=== PATIENT | female | born 1955 | race Hispanic/Latino ===

== ENCOUNTER → 2019-07-23 | Outpatient (CLI) | payer OTHER ==
[~2019-07-23] MED LIST: IOHEXOL-350 75 ML VIAL IV ONE
== END | disposition home or self-care (01) ==
LOC: RAH 08:55
PROVIDERS: ATTEND Internal Medicine
DX: K80.20 Calculus of gallbladder without cholecystitis without obstruction (principal); K57.30 Diverticulosis of large intestine without perforation or abscess without bleeding
CPT/HCPCS: 74178; Q9967

== ENCOUNTER → 2020-04-08 | Outpatient (CLI) | payer OTHER | END | disposition home or self-care (01) | LOC: RAH 13:06 | PROVIDERS: ATTEND Internal Medicine | DX: N60.02 Solitary cyst of left breast (principal); Q83.1 Accessory breast ==

== ENCOUNTER → 2020-11-05 | Outpatient (CLI) | payer OTHER | END | disposition home or self-care (01) | LOC: RAH 15:01 | PROVIDERS: ATTEND Internal Medicine | DX: N60.02 Solitary cyst of left breast (principal); N60.01 Solitary cyst of right breast; N63.21 Unspecified lump in the left breast, upper outer quadrant | CPT/HCPCS: 77066 ==

== ENCOUNTER 2021-01-11 20:03 | Emergency (ER) | payer OTHER ==
[2021-01-11] MEDS ORDERED: HYDROCODONE/ACETAMINOPHEN 10/325 MG TAB ONE (20:33)
[2021-01-11] MEDS ORDERED: ACETAMINOPHEN EXTRA STRENGTH 500 MG TABLET ONE (20:38)
[2021-01-11] MEDS ORDERED: SODIUM CHLORIDE 0.9% 50 ML IV ONE (21:48)
== END 2021-01-11 22:22 | disposition home or self-care (01) ==
LOC: EDH 20:03
DX: S01.81XA Laceration without foreign body of other part of head, initial encounter (principal); S80.02XA Contusion of left knee, initial encounter; S80.01XA Contusion of right knee, initial encounter; S90.31XA Contusion of right foot, initial encounter; Z88.8 Allergy status to other drugs, medicaments and biological substances; Z88.5 Allergy status to narcotic agent; Z88.9 Allergy status to unspecified drugs, medicaments and biological substances; W01.0XXA Fall on same level from slipping, tripping and stumbling without subsequent striking against object, initial encounter; Y93.89 Activity, other specified; Y92.89 Other specified places as the place of occurrence of the external cause; Y99.8 Other external cause status
CPT/HCPCS: 12002; 12013; 70450; 70486; 71045; 72125; 73562; 73630

== ENCOUNTER 2021-02-12 11:37 | Emergency (ER) | payer OTHER ==
[2021-02-12 12:17] LABS: BASOPHILS % (AUTO) 0.4 % (0.0-5.0); EOSINOPHILS % (AUTO) 0.6 % (0.0-8.0); HEMATOCRIT 46.1 % (36-48); LYMPHOCYTES % (AUTO) 38.8 % (21.0-51.0); MEAN CORPUSCULAR HEMOGLOBIN 30.7 pg (27.0-33.0); MEAN CORPUSCULAR HGB CONC 33.2 g/dL (32.0-36.0); MEAN CORPUSCULAR VOLUME 92.6 fL (79-99); MONOCYTES % (AUTO) 5.9 % (3.0-13.0); NEUTROPHILS % (AUTO) 53.9 % (40.0-77.0); PLATELET COUNT (AUTO) 246 K/uL (130-400); RED BLOOD CELL COUNT(AUTO) 4.98 MIL/uL (4.00-5.50); RED CELL DISTRIBUTION WIDTH 12.8 % (11.0-15.5); WHITE BLOOD COUNT (AUTO) 7.9 K/uL (4.8-10.8)
[2021-02-12 12:25] LABS: CREATININE 0.7 mg/dL (0.5-1.5); POTASSIUM 3.6 mmol/L (3.5-5.1)
[2021-02-12 12:30] LABS: BILIRUBIN,TOTAL 0.3 mg/dL (0.2-1.0); CRP QUANTITATIVE 1.5 mg/L (0.00-9.0); TOTAL PROTEIN, SERUM 7.6 g/dL (6.0-8.3)
[2021-02-12 13:34] LABS: ERYTHROCYTE SEDIMENTATION RATE 13 MM/HR (0-30)
[2021-02-12] MEDS ORDERED: IOHEXOL-350 50ML VIAL IV ONE (14:15)
== END 2021-02-12 16:37 | disposition home or self-care (01) ==
LOC: EDH 11:37
DX: R20.2 Paresthesia of skin (principal); Z88.6 Allergy status to analgesic agent; Z91.048 Other nonmedicinal substance allergy status; Z91.011 Allergy to milk products; Z88.8 Allergy status to other drugs, medicaments and biological substances
CPT/HCPCS: 36415; 70487; 80053; 84145; 85025; 85651; 86140; 99285; Q9967

== ENCOUNTER → 2023-01-26 | Outpatient (CLI) | payer OTHER | END | disposition home or self-care (01) | LOC: RAH 14:11 | PROVIDERS: ATTEND Internal Medicine | DX: N60.01 Solitary cyst of right breast (principal); N60.02 Solitary cyst of left breast | CPT/HCPCS: 77066 ==

== ENCOUNTER → 2024-05-08 | Outpatient (CLI) | payer OTHER | END | disposition home or self-care (01) | LOC: RAH 11:25 | PROVIDERS: ATTEND Internal Medicine | DX: Z12.31 Encounter for screening mammogram for malignant neoplasm of breast (principal); R92.323 Mammographic fibroglandular density, bilateral breasts | CPT/HCPCS: 77067 ==

== ENCOUNTER 2024-08-17 14:16 | Emergency (ER) | payer OTHER ==
[~2024-08-17] VITALS: Ht 152.4 cm; Wt 62.6 kg
[2024-08-17 14:53] VITALS: TEMP 98.5
[2024-08-17] MEDS: ondanSETRON 4MG INJ IVP ONE (15:30)
[2024-08-17 15:33] LABS: BASOPHILS # (AUTO) 0.02 K/uL (0.00-0.20); BASOPHILS % (AUTO) 0.4 % (0.0-5.0); EOSINOPHILS # (AUTO) 0.04 K/uL (0.00-0.70); EOSINOPHILS % (AUTO) 0.7 % (0.0-8.0); HEMATOCRIT 45.2 % (36-48); IMMATURE GRANULOCYTE ABSOLUTE 0.02 K/uL (0-1); LYMPHOCYTES % (AUTO) 35.5 % (21.0-51.0); MEAN CORPUSCULAR HEMOGLOBIN 29.8 pg (27.0-33.0); MEAN CORPUSCULAR VOLUME 90.4 fL (79-99); MONOCYTES # (AUTO) 0.4 K/uL (0.1-1.0); MONOCYTES % (AUTO) 7.7 % (3.0-13.0); NEUTROPHILS # (AUTO) 3.1 K/uL (1.8-7.7); NEUTROPHILS % (AUTO) 55.3 % (40.0-77.0); PLATELET COUNT (AUTO) 242 K/uL (130-400); RED CELL DISTRIBUTION WIDTH 12.4 % (11.0-15.5); WHITE BLOOD COUNT (AUTO) 5.6 K/uL (4.8-10.8)
[2024-08-17 15:49] LABS: INR 1.01 (0.85-1.15); PROTHROMBIN TIME 10.9 SEC (9.6-11.6)
[2024-08-17 15:51] LABS: CREATININE 0.8 mg/dL (0.5-1.0); POTASSIUM 3.3 mmol/L (3.5-5.1)
[2024-08-17 17:26] VITALS: BP 127/60; PULSE 70; RESP 18; O2SAT 97
[2024-08-17] MEDS: morPHINE 2 MG SYG IVP ONE (17:29)
== END 2024-08-17 17:35 | disposition home or self-care (01) ==
LOC: EDH 14:16
DX: R09.A9 Foreign body sensation, other site (principal); Z88.8 Allergy status to other drugs, medicaments and biological substances; Z88.5 Allergy status to narcotic agent; Z98.890 Other specified postprocedural states
CPT/HCPCS: 36415; 70360; 80048; 85025; 85610; 85730; J2270; J2405

== ENCOUNTER 2024-11-02 16:41 | Emergency (ER) | payer OTHER ==
[~2024-11-02] VITALS: Ht 154.9 cm; Wt 59.9 kg
--- NOTE | 2024-11-02 16:56 | ERN ---
ED Note History of Present Illness Stated Complaint: MECHANICAL FALL Chief Complaint: Mechanical Fall Time Seen by MD: 16:52 Dictation: PATIENT IS A 69-YEAR-OLD FEMALE HERE WITH COMPLAINTS OF HAVING RIGHT WRIST, LEFT KNEE AND ANTERIOR CHEST PAIN STATUS POST SAME LEVEL TRIP FALL. SHE STATES HE WAS WALKING HER DOG WHEN SHE TRIPPED AND FELL. NO LOC NO BLOOD THINNERS NO HEAD INJURY NO TRAUMA ALERT CRITERIA AT THIS TIME. PATIENT WAS AMBULATORY TO TRIAGE. ECCHYMOSIS AND ABRASION NOTED TO LEFT ANTERIOR KNEE. Allergies: Coded Allergies: alcohol (Unverified Allergy, Unknown, 02/12/21) amitriptyline (Unverified Allergy, Unknown, 02/12/21) codeine (Unverified Allergy, Unknown, 02/12/21) pantoprazole (Unverified Allergy, Unknown, 02/12/21) Home Meds Active Scripts Ketorolac Tromethamine (Ketorolac Tromethamine) 10 Mg Tablet, 1 TAB PO Q6HPRN PRN for pain for 5 Days, #20 TAB 0 Refills Prov:ARACELI CLARK PROFESSOR OF ENVIRONMENTAL ENGINEERING 11/02/24 Ibuprofen (Ibuprofen) 600 Mg Tablet, 600 MG PO Q6H PRN for PAIN, #30 TAB Prov:ARACELI CLARK PROFESSOR OF ENVIRONMENTAL ENGINEERING 11/02/24 Past Medical History Past Medical History: No Pertinent History Surgical History: Other Surgical History Other: BILAT EAR SX History: Not Applicable RN Note Reviewed/Agreed w/PFSH: Yes Review of System Dictation CONSTITUTIONAL: NEGATIVE EXCEPT FOR HPI HEAD/FACE: NEGATIVE EXCEPT FOR HPI EENT: NEGATIVE EXCEPT FOR HPI RESPIRATORY: NEGATIVE EXCEPT FOR HPI ANTERIOR CHEST PAIN GASTROINTESTINAL/ABDOMINAL: NEGATIVE EXCEPT FOR HPI GENITOURINARY: NEGATIVE EXCEPT FOR HPI MUSCULOSKELETAL: NEGATIVE EXCEPT FOR HPI RIGHT WRIST/LEFT KNEE PAIN INTEGUMENTARY: NEGATIVE EXCEPT FOR HPI NEUROLOGICAL/PSYCH: NEGATIVE EXCEPT FOR HPI HEMATOLOGIC/LYMPHATIC: NEGATIVE EXCEPT FOR HPI ALL SYSTEMS NEGATIVE, EXCEPT NOTED ABOVE. 13 POINT REVIEW OF SYSTEMS ASSESSED AND ALL NEGATIVE EXCEPT FOR ABOVE. Initial Vital Sign VS Vital Signs Date Time Temp Pulse Resp B/P (MAP) Pulse Ox O2 Delivery O2 Flow Rate FiO2 11/02/24 16:48 97.7 58 16 155/85 99 Room Air 0 11/02/24 17:22 21 Physical Exam Dictation VITAL SIGNS REVIEWED GENERAL APPEARANCE: ALERT, ORIENTED X 3, MILD ACUTE DISTRESS, WELL DEVELOPED, NOURISHED. HEAD AND FACE: NON-TRAUMATIC. EYES: PERRL, PINK CONJUNCTIVAS, EYELID NO TRAUMA, ANTERIOR CHAMBER WITH ARCUS SENILIS. EARS: PINNAS INTACT AND NO SIGNS OF TRAUMA OR ERYTHEMA EAR CANALS CLEAR AND NO DISCHARGE TM NO ERYTHEMA NOSE: NO DISCHARGE, NO BLEEDING. OROPHARYNX: MOUTH NORMAL, TONGUE PINK, PHARYNX CLEAR,NO ERYTHEMA, TONSILS NO EXUDATES, NO ABSCESSES NOTED, MUCOUS MEMBRANE MOIST NECK: SUPPLE, NON-TENDER, NO THYROMEGALY, NO MASSES, NO JVD, NO BRUITS BREAST:DEFERRED CHEST: DIFFUSE MILD ANTERIOR TENDERNESS TENDERNESS, NO CREPITUS, NO PARADOXICAL MOVEMENT, NO RETRACTIONS LUNGS:CLEAR, WELL-VENTILATED, SYMMETRIC, NO RALES, NO WHEEZING, NO RHONCHI, NO STRIDOR, GOOD BREATH SOUNDS BILATERALLY HEART: REGULAR RATE, REGULAR RHYTHM, NO MURMUR, NO GALLOPS VASCULAR: NO PERIPHERAL EDEMA, ABDOMEN: SOFT, POSITIVE BOWEL SOUNDS, NONDISTENDED, NO GUARDING, NONTENDER, NO REBOUND, NO MASSES NO HEPATOMEGALY, NO SPLENOMEGALY, NO WHITLOCK'S SIGN, NO HERNIAS. RECTAL: DEFERRED GENITAL: DEFERRED NEUROLOGICAL: NORMAL SPEECH, MOTOR FUNCTION INTACT, SENSORY FUNCTION INTACT MUSCULOSKELETAL: NECK NONTENDER, FULL RANGE OF MOTION, BACK NONTENDER, FULL RANGE OF MOTION, EXTREMITIES: ABRASION WITH ECCHYMOSIS TO LEFT MEDIAL ANTERIOR KNEE, MILD RIGHT WRIST PAIN TENDERNESS WITH ROTATION HOWEVER RANGE OF MOTION IS FULL SKIN: COLOR PINK, DRY, NO TURGOR, NO RASH, NO LACERATIONS, NO ABRASIONS, NO CONTUSIONS. LYMPHATIC: DEFERRED Results (Laboratory/Radiology) Laboratory/Radiology RIGHT WRIST X-RAY NEGATIVE LEFT KNEE X-RAY NEGATIVE CHEST X-RAY NEGATIVE Labs Reviewed?: Yes ED Course ED Course Orders Procedure Category Date Status Time Knee 3vws Lt RAD 11/02/24 Resulted 16:52 Wrist Comp 3+Vws Rt RAD 11/02/24 Resulted 16:52 Chest 1vw RAD 11/02/24 Resulted 16:52 Ketorolac 60mg/2ml PHA 11/02/24 Complete (Toradol 60mg/2ml) 17:00 Tetanus,Diphtheria PHA 11/02/24 Complete Tox [Adult] (Diphther 17:00 Current Medications Medications (Trade) Dose Ordered Sig/Virgen Route PRN Reason Start Time Stop Time Status Last Admin Dose Admin Ketorolac Tromethamine (toRADol 60MG/ 2ML) 60 mg ONCE ONCE IM 11/02/24 17:00 11/02/24 17:01 DC 11/02/24 16:58 Tetanus/ Diphtheria Toxoids Adsorbed (DiphthERIA-teTANUS TOXOID [ADULT]/ DECAVAC) 0.5 ml ONCE ONCE IM 11/02/24 17:00 11/02/24 17:01 DC 11/02/24 16:59 Vital Signs Date Time Temp Pulse Resp B/P (MAP) Pulse Ox O2 Delivery O2 Flow Rate FiO2 11/02/24 18:16 97.2 74 18 127/71 98 Room Air* 0 21 11/02/24 17:22 97.9 78 20 131/78 98 Room Air* 0 21 11/02/24 16:48 97.7 58 16 155/85 99 Room Air 0 1807, X-RAYS NEGATIVE PATIENT DISCHARGED HOME WITH THE TO FOLLOW ACTIVITY TOLERATED AND SEE YOUR DOCTOR EIGHTEEN , PATIENT WAS BEING DISCHARGED HOME AND SAID SHE HAD ALLERGIES TO IBUPROFEN ADVIL I TOLD HER I HAD GIVEN HER KETOROLAC ALMOST AN HOUR AGO AND SHE HAD HAD NO REACTION AT ALL. SHE ASKED ME IF I WOULD POLICE SEND HER SOME KETOROLAC TO HER PHARMACY AND I AGREED. Medical Decision Making MDM MEDICAL DECISION-MAKING BASED ON X-RAYS OF CHEST, LEFT KNEE, RIGHT WRIST. ALL X-RAYS NEGATIVE TETANUS SHOT WAS UPDATED DUE TO ABRASION LEFT KNEE PATIENT DISCHARGED HOME TO FOLLOW UP HER DOCTOR IN 1-2 DAYS ACTIVITY TOLERATED. DX & DISP Disposition: Discharge Departure Impression: Primary Impression: Contusion of chest wall with intact skin Additional Impressions: Contusion of left knee, initial encounter, Abrasion, left knee, initial encounter, Contusion of right wrist, initial encounter, Fall Condition: Stable Scripts Ketorolac Tromethamine (Ketorolac Tromethamine) 10 Mg Tablet 1 TAB PO Q6HPRN PRN for pain for 5 Days, #20 TAB 0 Refills Prov: ARACELI CLARK PROFESSOR OF ENVIRONMENTAL ENGINEERING 11/02/24 Ibuprofen (Ibuprofen) 600 Mg Tablet 600 MG PO Q6H PRN for PAIN, #30 TAB Prov: ARACELI CLARK PROFESSOR OF ENVIRONMENTAL ENGINEERING 11/02/24 Additional Instructions: FOLLOW-UP WITH PRIMARY CARE PROVIDER IN 1 TO 2 DAYS. TAKE MEDICATIONS DIRECTED HERE IN THE EMERGENCY ROOM. OKAY TO CONTINUE HOME MEDICATIONS UNLESS OTHERWISE DISCUSSED DURING YOUR VISIT IN THE EMERGENCY ROOM TODAY. RETURN TO YOUR NEAREST EMERGENCY ROOM IF SYMPTOMS WORSEN OR IF THERE IS NO IMPROVEMENT. CALL 911 IF YOU NEED IMMEDIATE ASSISTANCE. TAKE TYLENOL OR MOTRIN OVER -THE-COUNTER NEEDED AND IF NO CONTRAINDICATIONS ARE PRESENT. INCREASE ORAL HYDRATION. A WOUND CULTURE OR URINE CULTURE WAS ORDERED HERE IN THE EMERGENCY ROOM DEPARTMENT PLEASE FOLLOW-UP WITH PRIMARY CARE PROVIDER AND ADVISE THEM TO GET REPEAT PORTS FROM OUR FACILITY. IF YOU HAD ANY EDUARDO WRAP/SPLINTS THAT WERE APPLIED HERE, PLEASE DO NOT REMOVE THEM UNTIL YOU SEE YOUR PRIMARY CARE OR SPECIALTY. TRIPLE ANTIBIOTIC OINTMENT/[id number] TIMES A DAY FOR FIVE DAYS TO ABRASION LEFT KNEE. APPLY COOL COMPRESSES TO ALL PAIN AREAS3 TIMES A DAY NEEDED SEE YOUR PRIMARY CARE DOCTOR FOR FOLLOW UP AND ACTIVITY TOLERATED. Referrals: LUCERO GARRIDO MD (PCP) Time of Disposition: 18:09 I have reviewed the case, and I agree with, Diagnosis and Plan I performed a substantive portion of the visit. I have reviewed and personally made and approve the management plan that is documented in the notes by myself with RM/resident. I acknowledged full responsibility for the patient's management plan. ARACELI CLARK NP Nov 02, 2024 16:56 JADE FARMER DO Nov 03, 2024 18:38
[2024-11-02] MEDS: ketOROlac 60 MG VIAL (30MG/ML) IM ONE (16:58)
[2024-11-02] MEDS: teTANUS/diphthERIA TOXOID [ADULT] 0.5 ML VIAL IM ONE (16:59)
[2024-11-02] MEDS ORDERED: IBUP-2070 PO (18:11)
[2024-11-02 18:16] VITALS: BP 127/71; PULSE 74; RESP 18; TEMP 97.1; O2SAT 98
[2024-11-02] MEDS ORDERED: KETO10TA2 PO (18:21)
--- NOTE | 2024-11-02 18:24 | HMCIMG ---
CHEST 1VW REASON: ANTERIOR CHEST PAIN STATUS POST FALL COMPARISON: 01/11/2021 FINDINGS: Single view of the chest was obtained. Lungs are clear. Mild cardiomegaly. There is no pulmonary vascular congestion. Mediastinum and bony thorax appear unremarkable. IMPRESSION: 1. Mild cardiomegaly, no acute finding.
--- NOTE | 2024-11-02 18:28 | HMCIMG ---
WRIST COMP 3+VWS RT REASON: RIGHT WRIST PAIN STATUS POST FALL TECHNIQUE: 3 views were obtained. FINDINGS: There is no evidence of fracture or dislocation. There is no joint effusion. The soft tissues appear unremarkable. There is no evidence of a radiopaque foreign body. IMPRESSION: No acute findings.
--- NOTE | 2024-11-02 18:28 | HMCIMG ---
KNEE 3VWS LT REASON: LEFT ANTERIOR KNEE PAIN STATUS POST FALL TECHNIQUE: 3 views were obtained. FINDINGS: There is no evidence of fracture or dislocation. There is no joint effusion. The soft tissues appear unremarkable. There is no evidence of a radiopaque foreign body. IMPRESSION: No acute findings.
== END 2024-11-02 18:25 | disposition home or self-care (01) ==
LOC: EDH 16:41
DX: S20.219A Contusion of unspecified front wall of thorax, initial encounter (principal); S60.211A Contusion of right wrist, initial encounter; S80.02XA Contusion of left knee, initial encounter; Z88.5 Allergy status to narcotic agent; Z98.890 Other specified postprocedural states; W01.0XXA Fall on same level from slipping, tripping and stumbling without subsequent striking against object, initial encounter; Y93.01 Activity, walking, marching and hiking; Y92.89 Other specified places as the place of occurrence of the external cause; Y99.8 Other external cause status
CPT/HCPCS: 99284; 71045; 90714; 73562; 73110; 96372; 90471; J1885

== ENCOUNTER → 2025-08-16 | Outpatient (CLI) | payer OTHER ==
[~2025-08-16] MED LIST changes: +IBUP-1492 PO; -IOHEXOL-350 75 ML VIAL IV ONE; +KETO10TA2 PO
--- NOTE | 2025-08-17 15:55 | HMCIMG ---
BILATERAL BREAST ULTRASOUND: CLINICAL HISTORY: Follow-up for mammogram from 07/23/2025 with mild to moderately heterogeneously dense breasts.. COMPARISON: Prior ultrasound is available Finding: Real-time examination of the both breasts demonstrates heterogeneous echotexture throughout both the breasts without evidence of focal solid mass. The right breast has no masses and there is a small right axillary lymph node measuring 0.6 x 0.4 x 0.5 cm. The left breast has a cluster of cysts at 3:00 measuring 0.3 x 0.2 x 0.3 cm. The left breast at 9:00 there is a small hypoechoic lesion measuring 0.3 x 0.2 x 0.3 cm. On the prior ultrasound is appears to be stable and unchanged the left axilla has a benign-appearing lymph node measuring 0.9 x 0.6 x 0.9 cm.. masses. IMPRESSION: Left breast there is a small nodule which is unchanged and stable measuring 0.3 x 0.2 x 0.37. Left breast at 3:00 there is a cluster of cysts seen. Right breast has known hypoechoic nodule or cyst seen. I would recommend annual mammography with tomography with bilateral breast sonogram. FINAL ASSESSMENT: ACR: BI-RAD- 2. Benign: Also a negative assessment; finding(s) benign abnormalities. Management: Routine mammography screening. Likelihood of Cancer: Essentially 0% likelihood of malignancy.
== END | disposition home or self-care (01) ==
LOC: RAH 13:19
PROVIDERS: ATTEND Internal Medicine
DX: N60.02 Solitary cyst of left breast (principal); R92.333 Mammographic heterogeneous density, bilateral breasts; R92.8 Other abnormal and inconclusive findings on diagnostic imaging of breast